=== PATIENT | male | born 1995 | race Two or more races ===

== ENCOUNTER → 2018-01-17 17:44 | Emergency (ER) | payer SELFPAY ==
[~2018-01-17 17:44] MED LIST: Tetan/Diph/Pertus SYR(Tdap)* 0.5 ML SYR(BOOSTRIX) use SYR IM ONE
== END | disposition home or self-care (01) ==
LOC: OHCORT 17:44
DX: Z23 Encounter for immunization (principal)
CPT/HCPCS: 90715